=== PATIENT | male | born 1975 | race African-American/Black ===

== ENCOUNTER 2017-11-23 10:43 | Emergency (ER) | payer SELFPAY | END 2017-11-23 11:25 | disposition home or self-care (01) | LOC: EDH 10:43 | DX: B35.1 Tinea unguium (principal); L92.8 Other granulomatous disorders of the skin and subcutaneous tissue; I10 Essential (primary) hypertension; E11.9 Type 2 diabetes mellitus without complications; Z88.0 Allergy status to penicillin; Z72.0 Tobacco use | CPT/HCPCS: 82948 ==